=== PATIENT | female | born 1970 | race American Indian/Alaskan Native ===

== ENCOUNTER 2022-06-28 08:05 | Outpatient (CLI) | payer BC ==
--- NOTE | 2022-06-28 10:34 | Magnetic Resonance Report ---
MRI cervical spine without contrast INDICATION: Right shoulder pain and neck pain TECHNIQUE: Axial sagittal images FINDINGS: Alignment appears normal. Craniocervical junction appears normal. C2-C3: No spinal canal narrowing or neuroforaminal narrowing C3-C4: Small disc osteophyte and uncovertebral degenerative change. No significant neuroforaminal terri rowing C4-C5: Disc desiccation with small disc osteophyte. No significant neuroforaminal narrowing or canal narrowing C5-C6: Small central annular tear. Small disc bulge without significant neuroforaminal narrowing or c anal narrowing. Mild uncovertebral degenerative change. C6-C7: Bilateral perineural root sleeve cyst. No spinal canal narrowing or neuroforaminal narrowing C7-T1: I lateral perineural root sleeve cyst. No significant neuroforaminal narrowing or canal narrow ing IMPRESSION: Mild discogenic degenerative change. Please see above level by level description. Signer Name: Mike Alves MD Signed: 06/28/2022 10:29 AM Workstation Name: [email or web address]
--- NOTE | 2022-06-28 10:35 | Magnetic Resonance Report ---
MRI thoracic spine without contrast INDICATION: Right shoulder pain and upper back pain TECHNIQUE: Axial and sagittal images were performed FINDINGS: Alignment appears normal. Facets appear well aligned throughout. No subluxation is seen. No marrow replacement process is identified. A few small perineural root cyst cyst is seen throughout t he thoracic spine. No disc herniation, spinal canal narrowing or neuroforaminal narrowing. IMPRESSION: No significant neuroforaminal narrowing or canal narrowing is seen. No compression fracture is identi fied. Signer Name: Mike Alves MD Signed: 06/28/2022 10:30 AM Workstation Name: [email or web address]
== END 2022-06-28 08:06 | disposition home or self-care (01) ==
LOC: MRI 08:05
PROVIDERS: ATTEND Internal Medicine Critical Care Medicine
DX: M50.822 Other cervical disc disorders at C5-C6 level (principal); M50.321 Other cervical disc degeneration at C4-C5 level; M47.812 Spondylosis without myelopathy or radiculopathy, cervical region; M25.78 Osteophyte, vertebrae; M50.80 Other cervical disc disorders, unspecified cervical region; G96.198 Other disorders of meninges, not elsewhere classified
CPT/HCPCS: 72141; 72146